=== PATIENT | female | born 2000 | race Caucasian/White ===

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

== ENCOUNTER → 2021-06-30 12:12 | Outpatient (CLI) | payer OTHER, SELFPAY ==
--- NOTE | ~2021-06-30 | US_ITS ---
US thyroid INDICATION: Thyroid enlargement. TECHNIQUE: Real-time sonographic images of the thyroid gland were obtained. COMPARISON: No prior studies for comparison. FINDINGS: The right thyroid lobe measures 3.2 x 0.9 x 1.4 cm. The left thyroid lobe measures 3.4 x 0 .8 x 1.4 cm. There is normal echotexture and echogenicity throughout the thyroid gland. No discrete n odules identified. Normal vascular flow is present. IMPRESSION: 1. Normal thyroid without discrete nodule or abnormal vascularity. Reviewed, dictated and finalized at location B.
== END ==
PROVIDERS: PCP Nurse Practitioner Family; Visit Provider Internal Medicine Endocrinology, Diabetes & Metabolism
DX: E04.9 Nontoxic goiter, unspecified (principal)
CPT/HCPCS: 76536

== ENCOUNTER 2021-07-07 12:22 | Outpatient (CLI) | payer OTHER, SELFPAY ==
[2021-07-07 13:12] LABS: Basophils Percent Auto 0.9 % (0.2-1.2); Eosinophils Absolute Auto 0.1 K/mm3 (0-0.3); Eosinophils Percent Auto 1.5 % (0-4.4); Hematocrit 43.6 % (37.0-47.0); Hemoglobin 14.5 g/dL (12.0-15.0); Immature Granulocyte Absolute 0.01 K/mm3 (0.00-0.031); Immature Granulocyte Percent A 0.2 % (0-0.5); Lymphocytes Absolute Auto 1.47 K/mm3 (0.9-3.2); Lymphocytes Percent Auto 31.3 % (18.3-44.2); Mean Corpuscular HGB Conc 33.3 g/dl (32-36); Mean Corpuscular Hemoglobin 29.5 pg (26-34); Mean Corpuscular Volume 88.6 fl (80-100); Mean Platelet Volume 11.4 fl (7.4-10.4); Monocytes Absolute Auto 0.5 K/mm3 (0.1-0.6); Neutrophils Absolute Auto 2.6 K/mm3 (1.3-6.7); Neutrophils Percent Auto 56.1 % (45.5-73.1); Platelet Count Result 207 k/mm3 (150-375); Red Blood Count 4.92 M/mm3 (4.2-5.4); Red Cell Distribution Width 12.2 % (11.5-14.5); White Blood Count 4.7 K/mm3 (4.5-10.0)
[2021-07-07 13:28] LABS: Alanine Aminotransferase 36 U/L (6-35); Albumin Level 4.8 g/dL (3.7-5.6); Alkaline Phosphatase 48 U/L (45-116); Anion Gap 9 mmol/L (8-16); Aspartate Amino Transferase 37 U/L (14-36); Bilirubin,Total 0.5 mg/dL (0.2-1.3); Blood Urea Nitrogen 11 mg/dL (8-21); Calcium 9.3 mg/dL (8.9-10.7); Carbon Dioxide 25 mmol/L (22-30); Chloride 104 mmol/L (98-107); Estimated Glomerular Filt Rate > 60; Glucose 88 mg/dL (65-110); Potassium 4.1 mmol/L (3.4-5.0); Sodium 138 mmol/L (134-143)
[2021-07-07 13:56] LABS: Cortisol Random 9.71 ug/dL
[2021-07-07 14:15] LABS: Free T4 Free Thyroxine 1.05 ng/mL (0.78-2.19); Iron 114 ug/dL (37-170); Percent Iron Saturation 33 % (20-50); Vitamin D 25 Hydroxy 45.5 ng/mL
[2021-07-07 14:34] LABS: Folic Acid 8.8 ng/mL (2.76->20)
[2021-07-10 03:53] LABS: DHEA-Sulfate 416 mcg/dL (51-321); Insulin Level Total 8.3 uIU/mL (<=19.6); Thyroid Peroxidase Antibodies <1 IU/mL (<9)
[2021-07-11 12:33] LABS: Testosterone Free 3.2 pg/mL (0.2-5.0)
[2021-07-12 21:14] LABS: Adrenocorticotropic Hormone 22 pg/mL (6-50)
[2021-07-13 15:53] LABS: FSH 9.2 mIU/mL (***); LH 4.3 mIU/mL (***); Progesterone 0.9 ng/mL (***); Prolactin 22.6 ng/mL (***); Triiodothyronine T3 Free 3.8 pg/mL (3.0-4.7)
[2021-07-13 19:43] LABS: Estradiol, Ultrasensitive 44 pg/mL
== END 2021-07-07 12:23 | disposition home or self-care (01) ==
LOC: ANHLAB 12:28
PROVIDERS: PCP Nurse Practitioner Family; Visit Provider Internal Medicine Endocrinology, Diabetes & Metabolism
DX: R53.83 Other fatigue (principal); N92.6 Irregular menstruation, unspecified; E55.9 Vitamin D deficiency, unspecified
CPT/HCPCS: 36415; 80053; 82024; 82306; 82533; 82607; 82627; 82670; 82728; 82746; 83001; 83002; 83525; 83540; 83550; 84144; 84146; 84402; 84439; 84443; 84481; 85025; 86376